=== PATIENT | female | born 1980 | race Caucasian/White ===

== ENCOUNTER 2017-06-10 13:27 | Emergency (ER) | payer SELFPAY ==
[~2017-06-10] VITALS: Ht 165.1 cm; Wt 90.7 kg
[2017-06-10 13:36] VITALS: BP 138/78
[2017-06-10 14:46] VITALS: BP 133/71
== END 2017-06-10 14:46 | disposition home or self-care (01) ==
LOC: MED 13:27
DX: B08.4 Enteroviral vesicular stomatitis with exanthem (principal)
CPT/HCPCS: 99283

== ENCOUNTER 2020-01-14 09:48 | Emergency (ER) | payer OTHER ==
[~2020-01-14] VITALS: Ht 162.6 cm; Wt 97.5 kg
--- NOTE | 2020-01-14 09:51 | NUR ---
Patient ambulated to bed 7. RN evaluating patient at bedside.
[2020-01-14 09:53] VITALS: BP 130/95
--- NOTE | 2020-01-14 10:03 | NUR ---
Dr. Sales is evaluating the patient at bedside.
[2020-01-14] MEDS ORDERED: NACL 0.9% 1,000 ML IV ONE (10:05)
[2020-01-14] MEDS ORDERED: KETOROLAC 15 MG/ML VIAL IVP ONE (10:05)
[2020-01-14] MEDS ORDERED: ONDANSETRON 4 MG/2 ML VIAL IVP ONE (10:05)
[2020-01-14 10:20] LABS: BASOPHILS # (AUTO) 0.1 K/uL (0.00-0.22); BASOPHILS % (AUTO) 0.5 % (0.0-2.0); EOSINOPHILS % (AUTO) 0.4 % (0.0-4.0); HEMOGLOBIN 14.7 g/dL (12.0-18.0); LYMPHOCYTES # (AUTO) 1.6 K/uL (2.0-11.5); LYMPHOCYTES % (AUTO) 15.5 % (20.5-51.1); MEAN CORPUSCULAR HEMOGLOBIN 32 pg (27-31); MEAN CORPUSCULAR HGB CONC 34 g/dL (33-37); MEAN CORPUSCULAR VOLUME 92.2 fL (80-94); MONOCYTES # (AUTO) 0.6 K/uL (0.8-1.0); MONOCYTES % (AUTO) 5.7 % (1.7-9.3); NEUTROPHILS % (AUTO) 77.9 % (42.2-75.2); PLATELET COUNT (AUTO) 213 K/uL (140-450); RED BLOOD CELL COUNT(AUTO) 4.66 MIL/uL (4.20-6.10); RED CELL DISTRIBUTION WIDTH 12.8 % (11.6-13.7); WHITE BLOOD COUNT (AUTO) 10.3 K/uL (4.8-10.8)
--- NOTE | 2020-01-14 10:20 | NUR ---
PT CAME IN TODAY WITH C/O LEFT INGUNIAL PAIN X 3 DAYS, PAIN COMES AND GOES. DENIES N/V, NO DIARRHEA. HAD 2 BMS THIS AM, FIRST CONTAINING SOME MUCUS AND SECOND APPEARED BLACK IN COLOR. NON TENDER UPON PALPATION. DENIES ANY INJURY OR MUSCLE STRAIN. NO PAIN WITH URINATION AND NO FLANK PAIN. SIDE RAIL UP X 1 AND BED IN LOWEST POSITION. NKA NO MED HX NO MEDS
--- NOTE | 2020-01-14 10:42 | NUR ---
PATIENT TO HAVE CT WITH CONTRAST TO ABD, CONSENT SIGNED, WAITING FOR PENDING LABS AT THIS TIME
[2020-01-14 11:41] LABS: BILIRUBIN,URINE NEGATIVE (NEGATIVE); BLOOD, URINE 1+ (NEGATIVE); COLOR,URINE AMBER (YELLOW); LEUKOCYTE ESTERASE ,URINE NEGATIVE (NEGATIVE); NITRITE, URINE NEGATIVE (NEGATIVE); UGLUCOSE NEGATIVE (NEGATIVE)
[2020-01-14 11:44] LABS: APPEARANCE,URINE HAZY (CLEAR)
[2020-01-14 11:59] LABS: RBC,URINE 0-5 /HPF (0-5)
[2020-01-14 12:00] LABS: ANION GAP 14.3 (8-16); CARBON DIOXIDE 29.7 mmol/L (21-32)
[2020-01-14 12:00] LABS: WBC,URINE 0-5 /HPF (0-5)
--- NOTE | 2020-01-14 12:04 | NUR ---
CALLED RADIOLOGY TO LET THEM KNOW PT IS READY FOR CT
[2020-01-14 12:06] LABS: ALBUMIN 3.8 g/dL (3.4-5.0)
--- NOTE | 2020-01-14 12:09 | NUR ---
PT TRANSPORTED TO CT VIA WHEELCHAIR
[2020-01-14] MEDS ORDERED: metroNIDAZOLE 250 MG TAB PO ONE (13:05)
[2020-01-14] MEDS ORDERED: CIPROFLOXACIN 250 MG TAB PO ONE (13:05)
[2020-01-14 13:30] VITALS: BP 114/62
--- NOTE | 2020-01-14 13:35 | NUR ---
Patient discharged with v/s stable. Written and verbal after care instructions given and explained. Patient alert, oriented and verbalized understanding of instructions. Ambulatory with steady gait. All questions addressed prior to discharge. ID band removed. Patient advised to follow up with PMD. Rx of cipro & flagyl given. Patient educated on indication of medication including possible reaction and side effects. Opportunity to ask questions provided and answered.
== END 2020-01-14 13:35 | disposition home or self-care (01) ==
LOC: MED 09:48
DX: K57.92 Diverticulitis of intestine, part unspecified, without perforation or abscess without bleeding (principal)
CPT/HCPCS: 36415; 74177; 80053; 81001; 83690; 85025; 87086; 96374; 96375; 99285; J1885; J2405; J7030; Q9967